=== PATIENT | male | born 1950 | race African-American/Black ===

== ENCOUNTER 2017-04-25 10:14 | Inpatient (IN) | payer MEDICARE, MEDICAID ==
[~2017-04-25] VITALS: Ht 175.3 cm; Wt 118.4 kg
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
[2017-04-25] MEDS ORDERED: RT-ALBUTEROL SULF 2.5 MG/3 ML PRE-MIX VIAL INH STA (10:24)
[2017-04-25] MEDS ORDERED: RT-ALBUTEROL/IPRATROPIUM 3 ML (DUONEB) VIAL INH ONE (10:30)
[2017-04-25 10:32] LABS: BASOPHILS % (AUTO) 0 % (0-10); EOSINOPHILS % (AUTO) 0 % (0-10); LYMPHOCYTES # (AUTO) 1.5 X 10^3 (1.0-4.0); LYMPHOCYTES % (AUTO) 27 % (12-44); MEAN CORPUSCULAR HEMOGLOBIN 34 PG (25-34); MEAN CORPUSCULAR HGB CONC 33 G/DL (32-36); MEAN CORPUSCULAR VOLUME 103 FL (80-99); MEAN PLATELET VOLUME 11.1 FL (7.4-10.4); MONOCYTES # (AUTO) 0.9 X 10^3 (0.0-1.0); MONOCYTES % (AUTO) 16 % (0-12); NEUTROPHILS # (AUTO) 3.2 X 10^3 (1.8-7.8); NEUTROPHILS % (AUTO) 57 % (42-75); PLATELET COUNT 182 10^3/uL (130-400); RED BLOOD COUNT 4.88 10^6/uL (4.35-5.85); RED CELL DISTRIBUTION WIDTH 15.2 % (10.0-14.5); WHITE BLOOD COUNT 5.6 10^3/uL (4.3-11.0)
--- NOTE | 2017-04-25 11:09 | ED Respiratory ---
General Chief Complaint: Respiratory Problems Stated Complaint: SOA Nursing Triage Note: ARRIVED VIA WC TO ROOM 05 FROM [facility]. COMPLAINS OF SOA X5 DAYS. PT ON OXYGEN 2LNC. Source: patient Exam Limitations: no limitations History of Present Illness Time seen by provider: 10:20 Timing/Duration: yesterday, getting worse Severity: moderate, severe Prior Episodes/Possible Cause: occasional episodes Modifying Factors: Improves With Albuterol Nebulizer Associated Symptoms: No chest pain/soreness, cough, No fever/chills, No nasal congestion, shortness of breath, wheezing Allergies and Home Medications Allergies Coded Allergies: Penicillins (Verified Allergy, Unknown, 04/25/17) Constitutional: see HPI, No chills, No fever EENTM: No nose congestion, No throat pain Respiratory: No cough, dyspnea on exertion, short of breath, wheezing Cardiovascular: No chest pain, edema, No palpitations Gastrointestinal: No abdominal pain, No nausea, No vomiting Genitourinary: no symptoms reported Musculoskeletal: no symptoms reported Skin: no symptoms reported Psychiatric/Neurological: No Symptoms Reported All Other Systems Reviewed Negative Unless Noted: Yes Past Ixdmwim-Ywfwna-Dxavqf Hx Patient Social History Alcohol Use: Denies Use Recreational Drug Use: No Smoking Status: Current Everyday Smoker Recent Foreign Travel: No Contact w/Someone Who Travel: No Recent Infectious Disease Expo: No Recent Hopitalizations: No Seasonal Allergies Seasonal Allergies: No Surgeries History of Surgeries: No Respiratory History of Respiratory Disorde: Yes Respiratory Disorders: Pneumonia, COPD Cardiovascular History of Cardiac Disorders: Yes (CHF, EDEMA) Cardiac Disorders: Hypertension Neurological History of Neurological Disord: Yes Neurological Disorders: Dementia, Stroke Genitourinary History of Genitourinary Disor: No Gastrointestinal History of Gastrointestinal Di: Yes Gastrointestinal Disorders: Chronic Constipation Musculoskeletal History of Musculoskeletal Dis: No Endocrine History of Endocrine Disorders: No Cancer History of Cancer: No Psychosocial History of Psychiatric Problem: Yes Behavioral Health Disorders: Depression Integumentary History of Skin or Integumenta: No Reviewed Nursing Assessment Reviewed/Agree w Nursing PMH: Yes Family Medical History Significant Family History: No Pertinent Family Hx Physical Exam Vital Signs Vital Sign - Last 12Hours 04/25/17 10:14 Temp 96.9 Pulse 72 Resp 18 B/P (MAP) 153/108 (123) Pulse Ox 98 O2 Delivery Nasal Cannula O2 Flow Rate 2.00 Capillary Refill : Less Than 3 Seconds General Appearance: WD/WN, no apparent distress HEENT: PERRL/EOMI, pharynx normal Neck: full range of motion, supple Respiratory: decreased breath sounds, crackles, wheezing, expiration Cardiovascular: regular rate, rhythm, no murmur Gastrointestinal: non tender, soft Extremities: non-tender, normal inspection Neurologic/Psychiatric: alert, oriented x 3 Skin: normal color, warm/dry Focused Exam Evaluation Lactate Level Laboratory Tests 04/25/17 10:23: Lactic Acid Level 1.43 Lactic Acid Level Laboratory Tests Test 04/25/17 10:23 Lactic Acid Level 1.43 MMOL/L (0.50-2.00) Progress/Results/Core Measures Suspected Sepsis Recent Fever Within 48 Hours: No Infection Criteria Present: Suspected New Infection New/Unexplained Altered Menta: No Sepsis Screen: No Definite Risk Sepsis Diagnosis: SIRS Temperature:96.9 Pulse: 72 Respiratory Rate: 18 Laboratory Tests 04/25/17 10:23: White Blood Count 5.6 Blood Pressure 153 /108 Mean: 123 Laboratory Tests 04/25/17 10:23: Lactic Acid Level 1.43 Laboratory Tests 04/25/17 10:23: Creatinine 1.42H, Platelet Count 182, Total Bilirubin 0.8 Results/Orders Lab Results Laboratory Tests Test 04/25/17 10:23 04/25/17 10:54 04/25/17 11:14 Range/Units White Blood Count 5.6 4.3-11.0 10^3/uL Red Blood Count 4.88 4.35-5.85 10^6/uL Hemoglobin 16.6 13.3-17.7 G/DL Hematocrit 50 40-54 % Mean Corpuscular Volume 103 H 80-99 FL Mean Corpuscular Hemoglobin 34 25-34 PG Mean Corpuscular Hemoglobin Concent 33 32-36 G/DL Red Cell Distribution Width 15.2 H 10.0-14.5 % Platelet Count 182 130-400 10^3/uL Mean Platelet Volume 11.1 H 7.4-10.4 FL Neutrophils (%) (Auto) 57 42-75 % Lymphocytes (%) (Auto) 27 12-44 % Monocytes (%) (Auto) 16 H 0-12 % Eosinophils (%) (Auto) 0 0-10 % Basophils (%) (Auto) 0 0-10 % Neutrophils # (Auto) 3.2 1.8-7.8 X 10^3 Lymphocytes # (Auto) 1.5 1.0-4.0 X 10^3 Monocytes # (Auto) 0.9 0.0-1.0 X 10^3 Eosinophils # (Auto) 0.0 0.0-0.3 10^3/uL Basophils # (Auto) 0.0 0.0-0.1 10^3/uL Sodium Level 143 135-145 MMOL/L Potassium Level 4.5 3.6-5.0 MMOL/L Chloride Level 99 98-107 MMOL/L Carbon Dioxide Level 31 21-32 MMOL/L Anion Gap 13 5-14 MMOL/L Blood Urea Nitrogen 40 H 7-18 MG/DL Creatinine 1.42 H 0.60-1.30 MG/DL Estimat Glomerular Filtration Rate 60 BUN/Creatinine Ratio 28 Glucose Level 120 H 70-105 MG/DL Lactic Acid Level 1.43 0.50-2.00 MMOL/L Calcium Level 8.4 L 8.5-10.1 MG/DL Magnesium Level 2.1 1.8-2.4 MG/DL Total Bilirubin 0.8 0.1-1.0 MG/DL Aspartate Amino Transf (AST/SGOT) 20 5-34 U/L Alanine Aminotransferase (ALT/SGPT) 18 0-55 U/L Alkaline Phosphatase 58 40-136 U/L Troponin I < 0.30 <0.30 NG/ML C-Reactive Protein High Sensitivity 1.07 H 0.00-0.50 MG/DL B-Type Natriuretic Peptide 2557.5 H <100.0 PG/ML Total Protein 7.5 6.4-8.2 GM/DL Albumin 3.6 3.2-4.5 GM/DL Digoxin Level 0.52 L 0.80-2.00 NG/ML Urine Color YELLOW Urine Clarity SLIGHTLY CLOUDY Urine pH 6 5-9 Urine Specific [place] 1.020 1.016-1.022 Urine Protein 3+ H NEGATIVE Urine Glucose (UA) NEGATIVE NEGATIVE Urine Ketones NEGATIVE NEGATIVE Urine Nitrite NEGATIVE NEGATIVE Urine Bilirubin NEGATIVE NEGATIVE Urine Urobilinogen NORMAL NORMAL MG/DL Urine Leukocyte Esterase 2+ H NEGATIVE Urine RBC (Auto) 1+ H NEGATIVE Urine RBC RARE /HPF Urine WBC 5-10 H /HPF Urine Squamous Epithelial Cells 2-5 /HPF Urine Crystals NONE /LPF Urine Bacteria TRACE /HPF Urine Casts NONE /LPF Urine Mucus NEGATIVE /LPF Urine Culture Indicated YES My Orders Orders - CAROL BLOCK MD BNP (04/25/17 10:24) Cbc With Automated Diff (04/25/17 10:24) Comprehensive Metabolic Panel (04/25/17 10:24) Hs C Reactive Protein (04/25/17 10:24) Lactic Acid Analyzer (04/25/17 10:24) Magnesium (04/25/17 10:24) Troponin I (04/25/17 10:24) Blood Culture (04/25/17 10:24) Sputum Culture (04/25/17 10:24) Chest 1 View, Ap/Pa Only (04/25/17 10:24) Saline Lock/Iv-Start (04/25/17 10:24) Ekg Tracing (04/25/17 10:24) O2 (04/25/17 10:24) Monitor-Rhythm Ecg Trace Only (04/25/17 10:24) Albuterol Pre-Mix Nebs (Rt) (Proventil (04/25/17 10:24) Albuterol/Ipra Inhalation Soln (Duoneb I (04/25/17 10:30) Svn Sm Volume Nebulizer Rt-Rfs (04/25/17 10:24) Svn Sm Volume Nebulizer Rt-Rfs (04/25/17 10:24) Ua Culture If Indicated (04/25/17 10:48) Furosemide Injection (Lasix Injection) (04/25/17 11:28) Digoxin (04/25/17 11:30) Urine Culture (04/25/17 11:14) Nitroglycerin Ointment (Nitrobid Ointme (04/25/17 12:15) Medications Given in ED Current Medications Medications Dose Ordered Sig/Cruzito Route Start Time Stop Time Status Last Admin Dose Admin Albuterol/ Ipratropium 3 ml ONCE ONCE INH 04/25/17 10:30 04/25/17 10:31 DC 04/25/17 10:31 3 ML Nitroglycerin 1 inch ONCE ONCE TOP 04/25/17 12:15 04/25/17 12:16 DC 04/25/17 12:16 1 INCH Vital Signs/I&O Vital Sign - Last 12Hours 04/25/17 04/25/17 04/25/17 10:14 10:14 10:35 Temp 96.9 Pulse 72 Resp 18 B/P (MAP) 153/108 (123) Pulse Ox 98 96 O2 Delivery Nasal Cannula Nasal Cannula O2 Flow Rate 2.00 2.00 Capillary Refill : Less Than 3 Seconds Blood Pressure Mean: 123 Progress Note : Progress Note Seen and evaluated. IV, labs, EKG, chest x-ray, DuoNeb and albuterol therapy ordered. Monitor patient. 1140: Findings are consistent with acute heart failure. Lasix 40 mg IV ordered. Patient will require admission. 1157: I did discuss the case with Dr. Norwood. She accepts patient for admission, observation status. 1200: I did discuss the case with Dr. Chase and he accepts patient in consult. 1220: Nitroglycerin paste 1 inch to anterior chest wall for blood pressure 160s systolic and heart failure. Admit, inpatient status. Patient agrees with plan. ECG Initial ECG Impression Date: Apr 25, 2017 Initial ECG Impression Time: 11:04 Initial ECG Rate: 78 Initial ECG Rhythm: Normal Sinus Comment Sinus rhythm with PVC. First degree A-V block with left bundle branch block. Left axis deviation. No evidence of ST elevation [place]. No previous available for comparison. Interpreted by me. Diagnostic Imaging Diagonstic Imaging: Xray Plain Films/CT/US/NM/MRI: chest Comments NAME: ANIBAL MARS [facility] REC#: [id number] PT STATUS: REG ER : 1950 PHYSICIAN: CAROL BLOCK MD ADMIT DATE: 04/25/17/ER Draft Date of Exam:04/25/17 CHEST 1 VIEW, AP/PA ONLY EXAMINATION: Portable upright radiograph of the chest. INDICATION: Shortness of breath. FINDINGS: The lungs demonstrate patchy right basilar and left perihilar infiltrates. There is severe cardiomegaly. Pulmonary vascular congestion is also suggested. No effusion or pneumothorax. The mediastinum and norman appear unremarkable. Pacemaker with 2 cardiac leads seen. IMPRESSION: Marked cardiomegaly with vascular congestion. Patchy right basilar and left perihilar opacities may relate to superimposed pneumonia or pulmonary edema. Dictated on workstation # [id number] Dict: 04/25/17 1110 Trans: 04/25/17 1114 CHARLES [id number] Interpreted by: KALIE DONALDSON MD Electronically signed by: Departure Communication (Admissions) Time/Spoke to Admitting Phy: 11:57 Time/Spoke to Consulting Phy: 12:00 Impression Impression: Primary Impression: Acute heart failure Qualified Codes: I50.21 - Acute systolic (congestive) heart failure Additional Impression: Respiratory distress Disposition: ADMITTED INPATIENT Condition: Stable Admissions Decision to Admit Reason: Admit from ER (General) Decision to Admit/Date: Apr 25, 2017 Time/Decision to Admit Time: 11:57 Departure-Patient Inst. Referrals: JOSE L ROCA MD (PCP/Family) Primary Care Physician CAROL BLOCK MD Apr 25, 2017 11:09
--- NOTE | 2017-04-25 11:14 | Diagnostic Imaging Report ---
EXAMINATION: Portable upright radiograph of the chest. INDICATION: Shortness of breath. FINDINGS: The lungs demonstrate patchy right basilar and left perihilar infiltrates. There is severe cardiomegaly. Pulmonary vascular congestion is also suggested. No effusion or pneumothorax. The mediastinum and norman appear unremarkable. Pacemaker with 2 cardiac leads seen. IMPRESSION: Marked cardiomegaly with vascular congestion. Patchy right basilar and left perihilar opacities may relate to superimposed pneumonia or pulmonary edema. Dictated by: Dictated on workstation # [id number]
[2017-04-25 11:17] LABS: ALANINE AMINOTRANSFERASE 18 U/L (0-55); ALBUMIN 3.6 GM/DL (3.2-4.5); ANION GAP 13 MMOL/L (5-14); ASPARTATE AMINO TRANSFERASE 20 U/L (5-34); BILIRUBIN,TOTAL 0.8 MG/DL (0.1-1.0); BLOOD UREA NITROGEN 40 MG/DL (7-18); BUN/CREATININE RATIO 28; CALCIUM 8.4 MG/DL (8.5-10.1); CARBON DIOXIDE 31 MMOL/L (21-32); CHLORIDE 99 MMOL/L (98-107); CREATININE SERUM 1.42 MG/DL (0.60-1.30); GFR ESTIMATED 60; GLUCOSE 120 MG/DL (70-105); MAGNESIUM 2.1 MG/DL (1.8-2.4); POTASSIUM 4.5 MMOL/L (3.6-5.0); SODIUM 143 MMOL/L (135-145); TOTAL PROTEIN 7.5 GM/DL (6.4-8.2); hs C REACTIVE PROTEIN 1.07 MG/DL (0.00-0.50)
[2017-04-25 11:20] LABS: BILIRUBIN,URINE NEGATIVE (NEGATIVE); KETONES,URINE NEGATIVE (NEGATIVE); LEUKOCYTE ESTERASE ,URINE 2+ (NEGATIVE); NITRITE,URINE NEGATIVE (NEGATIVE); PH,URINE 6 (5-9); PROTEIN,URINE 3+ (NEGATIVE); UROBILINOGEN,URINE NORMAL (NORMAL)
[2017-04-25 11:23] LABS: TROPONIN I < 0.30 NG/ML (<0.30)
[2017-04-25] MEDS ORDERED: FUROSEMIDE 40 MG/4 ML INJ (LASIX) IV STA (11:28)
[2017-04-25] MEDS ORDERED: NITROGLYCERIN 2% OINT 1 GM UNIT DOSE PACKET TOP ONE (12:15)
--- NOTE | 2017-04-25 13:44 | Consultation-Cardiology ---
HPI-Cardiology Cardiology Consultation Date of Consultation 04/25/17 Date of Admission Time Seen by Provider: 13:38 Indication: congestive heart failure HPI 66 years old gentleman with no known past history, reported that he was living in [place] and he has seen a mercury cracking tester for history of heart attack and congestive heart failure. Patient is confused. Not sure about his place or time, while I was trying to obtain further history about the reason for him coming to the hospital patient became combative and agitated. Was angry and did not want any further exam to be performed. He appeared to be in congestive heart failure with elevated BNP area denied any chest pain at that time. I am unable to obtain any further history Home Medications & Allergies Allergies: Coded Allergies: Penicillins (Verified Allergy, Unknown, 04/25/17) Home Medication List Reviewed: Yes [id number] Hx Patient Social History Alcohol Use: Denies Use Recreational Drug Use: No Smoking Status: Current Everyday Smoker Recent Foreign Travel: No Recent Infectious Disease Expo: No Recent Hopitalizations: No Past Medical History unable to provide past medical history Family Medical History Significant Family History: No Pertinent Family Hx Family Medical Hx unable to provide family history Family History: Cardiovascular disease 19 FATHER 19 MOTHER Congenital heart disease Diabetes mellitus 19 MOTHER Hypercholesterolemia 19 FATHER 19 MOTHER Hypertension 19 FATHER 19 MOTHER Constitutional: other (confused and agitated, unable to provide review of systems) Reviewed Test Results Reviewed Test Results Lab Laboratory Tests Test 04/25/17 10:23 04/25/17 10:54 04/25/17 11:14 Range/Units White Blood Count 5.6 4.3-11.0 10^3/uL Red Blood Count 4.88 4.35-5.85 10^6/uL Hemoglobin 16.6 13.3-17.7 G/DL Hematocrit 50 40-54 % Mean Corpuscular Volume 103 H 80-99 FL Mean Corpuscular Hemoglobin 34 25-34 PG Mean Corpuscular Hemoglobin Concent 33 32-36 G/DL Red Cell Distribution Width 15.2 H 10.0-14.5 % Platelet Count 182 130-400 10^3/uL Mean Platelet Volume 11.1 H 7.4-10.4 FL Neutrophils (%) (Auto) 57 42-75 % Lymphocytes (%) (Auto) 27 12-44 % Monocytes (%) (Auto) 16 H 0-12 % Eosinophils (%) (Auto) 0 0-10 % Basophils (%) (Auto) 0 0-10 % Neutrophils # (Auto) 3.2 1.8-7.8 X 10^3 Lymphocytes # (Auto) 1.5 1.0-4.0 X 10^3 Monocytes # (Auto) 0.9 0.0-1.0 X 10^3 Eosinophils # (Auto) 0.0 0.0-0.3 10^3/uL Basophils # (Auto) 0.0 0.0-0.1 10^3/uL Sodium Level 143 135-145 MMOL/L Potassium Level 4.5 3.6-5.0 MMOL/L Chloride Level 99 98-107 MMOL/L Carbon Dioxide Level 31 21-32 MMOL/L Anion Gap 13 5-14 MMOL/L Blood Urea Nitrogen 40 H 7-18 MG/DL Creatinine 1.42 H 0.60-1.30 MG/DL Estimat Glomerular Filtration Rate 60 BUN/Creatinine Ratio 28 Glucose Level 120 H 70-105 MG/DL Lactic Acid Level 1.43 0.50-2.00 MMOL/L Calcium Level 8.4 L 8.5-10.1 MG/DL Magnesium Level 2.1 1.8-2.4 MG/DL Total Bilirubin 0.8 0.1-1.0 MG/DL Aspartate Amino Transf (AST/SGOT) 20 5-34 U/L Alanine Aminotransferase (ALT/SGPT) 18 0-55 U/L Alkaline Phosphatase 58 40-136 U/L Troponin I < 0.30 <0.30 NG/ML C-Reactive Protein High Sensitivity 1.07 H 0.00-0.50 MG/DL B-Type Natriuretic Peptide 2557.5 H <100.0 PG/ML Total Protein 7.5 6.4-8.2 GM/DL Albumin 3.6 3.2-4.5 GM/DL Digoxin Level 0.52 L 0.80-2.00 NG/ML Urine Color YELLOW Urine Clarity SLIGHTLY CLOUDY Urine pH 6 5-9 Urine Specific [place] 1.020 1.016-1.022 Urine Protein 3+ H NEGATIVE Urine Glucose (UA) NEGATIVE NEGATIVE Urine Ketones NEGATIVE NEGATIVE Urine Nitrite NEGATIVE NEGATIVE Urine Bilirubin NEGATIVE NEGATIVE Urine Urobilinogen NORMAL NORMAL MG/DL Urine Leukocyte Esterase 2+ H NEGATIVE Urine RBC (Auto) 1+ H NEGATIVE Urine RBC RARE /HPF Urine WBC 5-10 H /HPF Urine Squamous Epithelial Cells 2-5 /HPF Urine Crystals NONE /LPF Urine Bacteria TRACE /HPF Urine Casts NONE /LPF Urine Mucus NEGATIVE /LPF Urine Culture Indicated YES Physical Exam Vital Signs Vital Sign - Last 12Hours 04/25/17 10:14 Temp 96.9 Pulse 72 Resp 18 B/P (MAP) 153/108 (123) Pulse Ox 98 O2 Delivery Nasal Cannula O2 Flow Rate 2.00 Capillary Refill : Less Than 3 Seconds General Appearance: Chronically ill, Mild Distress HEENT: Other (unable to evaluate) Neck: Full Range of Motion, Non Tender Respiratory: Chest Non Tender, Crackles, Decreased Breath Sounds Cardiovascular: Systolic Murmur, Gallop/S3, Other (mild edema) Gastrointestinal: Other (unable to do abdominal exam) Rectal: Deferred (due to his current condition) Genital/Rectal: Other (unable to perform rectal exam) Back: Other (not following commands) A/P-Cardiology Admission Diagnosis Congestive heart failure Coronary artery disease Hypertension Hyperlipidemia Assessment/Plan Congestive heart failure, unknown etiology, it could be ischemic in nature, elevated BMP, will start on diuretics, evaluate 2-D echocardiogram. Questionable pulmonary infiltrate, continue to monitor chest x-ray Coronary artery disease, questionable history of heart attack in the past, I do not have any access to his old records. Monitor for now. Hypertension restart home medications and monitor blood pressure Hyperlipidemia, evaluate lipid profile. Confusion and agitation, questionable secondary to hypoxemia, probably under lying history of vascular dementia or stroke. JOHN RILEY MD Apr 25, 2017 13:43
[2017-04-25] MEDS ORDERED: CATHETER FLUSH 10 ML SYR IV PRN (13:45)
[2017-04-25 13:50] VITALS: BP 139/98
[2017-04-25] MEDS: ASPIRIN 325 MG (5 GR) TABLET PO SCH (14:37)
[2017-04-25] MEDS: CATHETER FLUSH 10 ML SYR IV SCH ×2 (14:37→20:43)
[2017-04-25] MEDS ORDERED: CARV3.122 PO (15:10)
[2017-04-25] MEDS ORDERED: GUAI100L13 PO (15:10)
[2017-04-25] MEDS ORDERED: FURO40TA4 PO (15:10)
[2017-04-25] MEDS ORDERED: IPRA3AMP IH (15:10)
[2017-04-25] MEDS ORDERED: FAMO20TA3 PO (15:10)
[2017-04-25] MEDS ORDERED: FOLI1TAB24 PO (15:10)
[2017-04-25] MEDS ORDERED: LATA2.5D5 OU (15:10)
[2017-04-25] MEDS ORDERED: DIVA500T15 PO (15:10)
[2017-04-25] MEDS ORDERED: POTA20TA15 PO (15:10)
[2017-04-25] MEDS ORDERED: NAPR-1071 PO (15:10)
[2017-04-25] MEDS ORDERED: ASCO-262 PO (15:10)
[2017-04-25] MEDS ORDERED: DIGO125T PO (15:10)
[2017-04-25] MEDS ORDERED: METO5TAB6 PO (15:10)
[2017-04-25] MEDS ORDERED: TRAZ-28 PO (15:10)
[2017-04-25] MEDS ORDERED: DONE5TAB30 PO (15:10)
[2017-04-25] MEDS ORDERED: CHOL200025 PO (15:10)
[2017-04-25] MEDS ORDERED: ACET-2267 PO (15:10)
[2017-04-25] MEDS ORDERED: MAGN400T29 PO (15:10)
[2017-04-25] MEDS ORDERED: LEVE500T6 PO (15:10)
[2017-04-25] MEDS ORDERED: METH4TAB11 PO (15:10)
[2017-04-25] MEDS ORDERED: ASPI-983 PO (15:10)
[2017-04-25] MEDS ORDERED: ISOS30TA8 PO (15:26)
[2017-04-25 15:30] VITALS: BP 143/102
[2017-04-25] MEDS: RT-ALBUTEROL/IPRATROPIUM 3 ML (DUONEB) VIAL INH SCH ×2 (15:54→22:09)
[2017-04-25] MEDS: FUROSEMIDE 40 MG/4 ML INJ (LASIX) IV SCH (17:37)
[2017-04-25 19:58] VITALS: BP 143/99
[2017-04-25] MEDS: FAMOTIDINE 20 MG (PEPCID) TABLET PO SCH (20:43)
[2017-04-25] MEDS: CARVEDILOL 3.125 MG (COREG) TABLET PO SCH (20:43)
[2017-04-26] VITALS: BP 136/90
[2017-04-26] MEDS: RT-ALBUTEROL/IPRATROPIUM 3 ML (DUONEB) VIAL INH SCH ×5 (02:21→18:32)
[2017-04-26 04:00] VITALS: BP 123/78
[2017-04-26] MEDS: FUROSEMIDE 40 MG/4 ML INJ (LASIX) IV SCH (05:54)
[2017-04-26] MEDS: CATHETER FLUSH 10 ML SYR IV SCH ×3 (05:55→21:13)
[2017-04-26 06:12] LABS: BASOPHILS % (AUTO) 0 % (0-10); EOSINOPHILS % (AUTO) 1 % (0-10); LYMPHOCYTES # (AUTO) 1.2 X 10^3 (1.0-4.0); LYMPHOCYTES % (AUTO) 26 % (12-44); MEAN CORPUSCULAR HEMOGLOBIN 34 PG (25-34); MEAN CORPUSCULAR HGB CONC 33 G/DL (32-36); MEAN CORPUSCULAR VOLUME 103 FL (80-99); MEAN PLATELET VOLUME 10.8 FL (7.4-10.4); MONOCYTES % (AUTO) 21 % (0-12); NEUTROPHILS # (AUTO) 2.5 X 10^3 (1.8-7.8); NEUTROPHILS % (AUTO) 53 % (42-75); PLATELET COUNT 152 10^3/uL (130-400); RED BLOOD COUNT 4.44 10^6/uL (4.35-5.85); RED CELL DISTRIBUTION WIDTH 15.2 % (10.0-14.5); WHITE BLOOD COUNT 4.7 10^3/uL (4.3-11.0)
[2017-04-26 06:33] LABS: BAND NEUTROPHILS 2 %; EOSINOPHILS % (MANUAL) 0 %; LYMPHOCYTES % (MANUAL) 24 %; NEUTROPHILS % (MANUAL) 60 %
[2017-04-26 06:34] LABS: ANISOCYTOSIS SLIGHT; BASOPHILS % (MANUAL) 0 %
[2017-04-26 06:37] LABS: ALBUMIN 3.3 GM/DL (3.2-4.5); BILIRUBIN,TOTAL 0.5 MG/DL (0.1-1.0); CALCIUM 8.4 MG/DL (8.5-10.1); CREATININE SERUM 1.46 MG/DL (0.60-1.30); POTASSIUM 4.1 MMOL/L (3.6-5.0); TOTAL PROTEIN 6.5 GM/DL (6.4-8.2)
[2017-04-26 08:22] VITALS: BP 126/87
[2017-04-26] MEDS ORDERED: ISOSORBIDE DINITRATE 30 MG PO SCH (09:00)
[2017-04-26] MEDS: METOLAZONE 5 MG (ZAROXOLYN) TAB PO SCH (09:06)
[2017-04-26] MEDS: LEVETIRACETAM 500 MG (KEPPRA) TAB PO SCH ×2 (09:06→21:10)
[2017-04-26] MEDS: ASPIRIN 325 MG (5 GR) TABLET PO SCH (09:06)
[2017-04-26] MEDS: ISOSORBIDE DINITRATE 10 MG (ISORDIL) TABLET PO SCH (09:07)
[2017-04-26] MEDS: DIGOXIN 0.125 MG (LANOXIN) TAB PO SCH (09:07)
[2017-04-26] MEDS: FAMOTIDINE 20 MG (PEPCID) TABLET PO SCH ×2 (09:07→21:10)
[2017-04-26] MEDS: CARVEDILOL 3.125 MG (COREG) TABLET PO SCH ×2 (09:07→21:10)
[2017-04-26] MEDS: FOLIC ACID 1 MG TAB PO SCH (09:07)
--- NOTE | 2017-04-26 09:34 | History & Physicial (CHS) ---
BRO VILLARREAL STUDENT 04/26/17 0934: HPI History of Present Illness: Patient presented to the ED last night from [facility] for SOB. At the ED, he denied chest pain. According to ED note, had SOB for 5 days. Today, patient was confused and could not recall where he was or why he was in the hospital; he kept saying that he must be here to "get well". He could not recall day, time, or location. He did inform me that he is from [place]. He denied chest pain, shortness of breath, headache, n/v/d, difficulties urinating , pain with urination, fever, joint pains. Difficult to obtain history due to confusion this morning. Source: patient Exam Limitations: clinical condition Date seen by provider: Apr 26, 2017 Time Seen by Provider: 08:00 Attending Physician Myrna Bradley MD PCP Gregg Tan MD Consult Date of Admission Apr 25, 2017 at 12:30 Home Medications Home Medications Reviewed patient Home Medication Reconciliation Form Allergies Coded Allergies: Penicillins (Verified Allergy, Unknown, 04/25/17) [facility] Hx Patient Social History Alcohol Use: Denies Use Recreational Drug Use: No Smoking Status: Current Everyday Smoker Recent Foreign Travel: No Contact w/other who traveled: No Recent Hopitalizations: No Recent Infectious Disease Expo: No Physical Abuse Screen: No Sexual Abuse: No Immunizations Up To Date Date of Pneumonia Vaccine: Apr 17, 2016 Date of Influenza Vaccine: Mar 13, 2017 Family Medical History Significant Family History: No Pertinent Family Hx Family History: Cardiovascular disease 19 FATHER 19 MOTHER Congenital heart disease Diabetes mellitus 19 MOTHER Hypercholesterolemia 19 FATHER 19 MOTHER Hypertension 19 FATHER 19 MOTHER Review of Systems (CHC) Constitutional: No chills, No dizziness, No fever Respiratory: No cough, No short of breath Cardiovascular: No chest pain, No palpitations Gastrointestinal: No abdominal pain, No constipation, No diarrhea, No nausea, No vomiting Genitourinary: No dysuria, No frequency, No hesitancy Musculoskeletal: No joint pain Reviewed Test Results Reviewed Test Results Lab Laboratory Tests Test 04/25/17 10:23 04/25/17 10:54 04/25/17 11:14 04/26/17 05:49 Range/Units White Blood Count 5.6 4.7 4.3-11.0 10^3/uL Red Blood Count 4.88 4.44 4.35-5.85 10^6/uL Hemoglobin 16.6 14.9 13.3-17.7 G/DL Hematocrit 50 46 40-54 % Mean Corpuscular Volume 103 H 103 H 80-99 FL Mean Corpuscular Hemoglobin 34 34 25-34 PG Mean Corpuscular Hemoglobin Concent 33 33 32-36 G/DL Red Cell Distribution Width 15.2 H 15.2 H 10.0-14.5 % Platelet Count 182 152 130-400 10^3/uL Mean Platelet Volume 11.1 H 10.8 H 7.4-10.4 FL Neutrophils (%) (Auto) 57 53 42-75 % Lymphocytes (%) (Auto) 27 26 12-44 % Monocytes (%) (Auto) 16 H 21 H 0-12 % Eosinophils (%) (Auto) 0 1 0-10 % Basophils (%) (Auto) 0 0 0-10 % Neutrophils # (Auto) 3.2 2.5 1.8-7.8 X 10^3 Lymphocytes # (Auto) 1.5 1.2 1.0-4.0 X 10^3 Monocytes # (Auto) 0.9 1.0 0.0-1.0 X 10^3 Eosinophils # (Auto) 0.0 0.0 0.0-0.3 10^3/uL Basophils # (Auto) 0.0 0.0 0.0-0.1 10^3/uL Sodium Level 143 144 135-145 MMOL/L Potassium Level 4.5 4.1 3.6-5.0 MMOL/L Chloride Level 99 100 98-107 MMOL/L Carbon Dioxide Level 31 34 H 21-32 MMOL/L Anion Gap 13 10 5-14 MMOL/L Blood Urea Nitrogen 40 H 43 H 7-18 MG/DL Creatinine 1.42 H 1.46 H 0.60-1.30 MG/DL Estimat Glomerular Filtration Rate 60 59 BUN/Creatinine Ratio 28 29 Glucose Level 120 H 79 70-105 MG/DL Lactic Acid Level 1.43 0.50-2.00 MMOL/L Calcium Level 8.4 L 8.4 L 8.5-10.1 MG/DL Magnesium Level 2.1 1.8-2.4 MG/DL Total Bilirubin 0.8 0.5 0.1-1.0 MG/DL Aspartate Amino Transf (AST/SGOT) 20 14 5-34 U/L Alanine Aminotransferase (ALT/SGPT) 18 16 0-55 U/L Alkaline Phosphatase 58 57 40-136 U/L Troponin I < 0.30 <0.30 NG/ML C-Reactive Protein High Sensitivity 1.07 H 0.00-0.50 MG/DL B-Type Natriuretic Peptide 2557.5 H 2286.6 H <100.0 PG/ML Total Protein 7.5 6.5 6.4-8.2 GM/DL Albumin 3.6 3.3 3.2-4.5 GM/DL Digoxin Level 0.52 L 0.80-2.00 NG/ML Urine Color YELLOW Urine Clarity SLIGHTLY CLOUDY Urine pH 6 5-9 Urine Specific [place] 1.020 1.016-1.022 Urine Protein 3+ H NEGATIVE Urine Glucose (UA) NEGATIVE NEGATIVE Urine Ketones NEGATIVE NEGATIVE Urine Nitrite NEGATIVE NEGATIVE Urine Bilirubin NEGATIVE NEGATIVE Urine Urobilinogen NORMAL NORMAL MG/DL Urine Leukocyte Esterase 2+ H NEGATIVE Urine RBC (Auto) 1+ H NEGATIVE Urine RBC RARE /HPF Urine WBC 5-10 H /HPF Urine Squamous Epithelial Cells 2-5 /HPF Urine Crystals NONE /LPF Urine Bacteria TRACE /HPF Urine Casts NONE /LPF Urine Mucus NEGATIVE /LPF Urine Culture Indicated YES Neutrophils % (Manual) 60 % Lymphocytes % (Manual) 24 % Monocytes % (Manual) 14 % Eosinophils % (Manual) 0 % Basophils % (Manual) 0 % Band Neutrophils 2 % Anisocytosis SLIGHT Vital Signs 04/25/17 04/26/17 15:31 08:22 Temp 96.9 Pulse 73 Resp 20 B/P (MAP) 126/87 (100) Pulse Ox 91 O2 Delivery Nasal Cannula O2 Flow Rate 2.00 FiO2 28 Radiology Chest x-ray on 04/25/17: interpreted by Dr. Freeman De Guzman IMPRESSION: Marked cardiomegaly with vascular congestion. Patchy right basilar and left perihilar opacities may relate to superimposed pneumonia or pulmonary edema. Physical Exam-(CHC) Physical Exam Vital Signs VS - Last 72 Hours, by Label 04/25/17 04/25/17 04/25/17 04/25/17 10:14 10:14 10:35 13:10 Temp 96.9 Pulse 72 77 Resp 18 18 B/P (MAP) 153/108 (123) Pulse Ox 98 96 98 O2 Delivery Nasal Cannula Nasal Cannula O2 Flow Rate 2.00 2.00 04/25/17 04/25/17 04/25/17 04/25/17 13:25 13:50 15:30 15:31 Temp 66.8 98.2 Pulse 73 74 77 Resp 16 18 B/P (MAP) 139/98 (112) 143/102 (116) Pulse Ox 98 97 98 O2 Delivery Nasal Cannula Nasal Cannula Nasal Cannula O2 Flow Rate 2.00 2.00 1.50 2.00 FiO2 28 04/25/17 04/25/17 04/25/17 04/25/17 15:42 19:00 19:58 21:00 Temp 98.7 Pulse 64 69 Resp 18 B/P (MAP) 143/99 (114) Pulse Ox 98 O2 Delivery Nasal Cannula Nasal Cannula Nasal Cannula O2 Flow Rate 2.00 1.50 2.00 04/25/17 04/26/17 04/26/17 04/26/17 22:09 00:00 01:27 02:22 Temp 97.3 Pulse 70 80 Resp 14 B/P (MAP) 136/90 (105) Pulse Ox 96 93 95 O2 Delivery Nasal Cannula Nasal Cannula Nasal Cannula O2 Flow Rate 2.00 1.50 2.00 04/26/17 04/26/17 04/26/17 04/26/17 04:00 06:49 07:28 08:22 Temp 97.0 96.9 Pulse 60 81 73 Resp 12 20 B/P (MAP) 123/78 (93) 126/87 (100) Pulse Ox 93 95 91 O2 Delivery Nasal Cannula Nasal Cannula Nasal Cannula O2 Flow Rate 2.00 2.00 2.00 Capillary Refill : Less Than 3 Seconds General Appearance: WD/WN, no apparent distress Respiratory: chest non-tender, no respiratory distress, no accessory muscle use , decreased breath sounds, crackles Cardiovascular: regular rate, rhythm, systolic murmur Gastrointestinal: normal bowel sounds, non tender, soft Neurologic/Psychiatric: No alert, disoriented x 3 Skin: normal color, warm/dry Clinical Quality Measures DVT/VTE Risk/Contraindication: Risk Factor Score Per Nursin RFS Level Per Nursing on Admit: 4+=Very High Copy Copies To 1: [facility] Leandra Balbuena Assessment/Plan Assessment/Plan Admission Dx 1. Acute congestive heart failure 2. Suspected pneumonia or pulmonary edema per chest x-ray 3. Hypertension 4. Confusion Plan 1. Acute congestive heart failure: elevated BMP, consulted Dr. Chase for echocardiogram. 2. Suspected pneumonia or pulmonary edema per chest x-ray: continue to monitor WBC count and chest x-ray for changes. Begin abx if consolidation develops. 3. Hypertension: resume home medications, monitor pressure 4. Confusion: monitor vital signs and for infection MYRNA BRADLEY MD 04/26/17 1034: HPI History of Present Illness: In addition to above Patient recently treated in [place] for COPD exacerbation with a steroid taper that did not improve his shortness of breath. States that he walks with walker at baseline. Home Medications Allergies Coded Allergies: Penicillins (Verified Allergy, Unknown, 04/25/17) IOP-Eqvije-Gjiayi Hx Patient Social History Living Status: [place], [facility] Past Medical History HTN HLD CHF CAD Family Medical History Family History: Cardiovascular disease 19 FATHER 19 MOTHER Congenital heart disease Diabetes mellitus 19 MOTHER Hypercholesterolemia 19 FATHER 19 MOTHER Hypertension 19 FATHER 19 MOTHER Review of Systems (CHC) EENTM: no symptoms reported Respiratory: dyspnea on exertion, short of breath Skin: No lesions, No rash Psychiatric/Neurological: Denies Anxiety, Denies Depressed, Denies Numbness, Weakness Physical Exam-([facility]) Physical Exam Vital Signs VS - Last 72 Hours, by Label 04/25/17 04/25/17 04/25/17 04/25/17 10:14 10:14 10:35 13:10 Temp 96.9 Pulse 72 77 Resp 18 18 B/P (MAP) 153/108 (123) Pulse Ox 98 96 98 O2 Delivery Nasal Cannula Nasal Cannula O2 Flow Rate 2.00 2.00 04/25/17 04/25/17 04/25/17 04/25/17 13:25 13:50 15:30 15:31 Temp 66.8 98.2 Pulse 73 74 77 Resp 16 18 B/P (MAP) 139/98 (112) 143/102 (116) Pulse Ox 98 97 98 O2 Delivery Nasal Cannula Nasal Cannula Nasal Cannula O2 Flow Rate 2.00 2.00 1.50 2.00 FiO2 28 04/25/17 04/25/17 04/25/17 04/25/17 15:42 19:00 19:58 21:00 Temp 98.7 Pulse 64 69 Resp 18 B/P (MAP) 143/99 (114) Pulse Ox 98 O2 Delivery Nasal Cannula Nasal Cannula Nasal Cannula O2 Flow Rate 2.00 1.50 2.00 04/25/17 04/26/17 04/26/17 04/26/17 22:09 00:00 01:27 02:22 Temp 97.3 Pulse 70 80 Resp 14 B/P (MAP) 136/90 (105) Pulse Ox 96 93 95 O2 Delivery Nasal Cannula Nasal Cannula Nasal Cannula O2 Flow Rate 2.00 1.50 2.00 04/26/17 04/26/17 04/26/17 04/26/17 04:00 06:49 07:28 08:13 Temp 97.0 Pulse 60 81 Resp 12 B/P (MAP) 123/78 (93) Pulse Ox 93 95 O2 Delivery Nasal Cannula Nasal Cannula Nasal Cannula O2 Flow Rate 2.00 2.00 2.00 04/26/17 04/26/17 08:22 10:27 Temp 96.9 Pulse 73 Resp 20 B/P (MAP) 126/87 (100) Pulse Ox 91 93 O2 Delivery Nasal Cannula Nasal Cannula O2 Flow Rate 2.00 2.00 General Appearance: WD/WN, no apparent distress HEENT: PERRL/EOMI Neck: non-tender, full range of motion, supple, normal inspection Respiratory: chest non-tender, no respiratory distress, no accessory muscle use , decreased breath sounds, No accessory muscle use, crackles Cardiovascular: regular rate, rhythm, systolic murmur, No irregularly irregular Gastrointestinal: normal bowel sounds, non tender, soft, No guarding, No rebound, No tenderness Extremities: no calf tenderness, normal capillary refill, pedal edema (1+) Neurologic/Psychiatric: part maker II-XII nml as tested, no motor/sensory deficits, normal mood/affect, disoriented x 3 Skin: normal color, warm/dry Lymphatic: no adenopathy Copy Copies To 1: GIDEON Balbuena Assessment/Plan Assessment/Plan Plan 66 yo M admitted for worsening shortness of breath found to be in Acute CHF Plan Acute systolic CHF with Pulmonary Edema - Cardiology consulted, awaiting records - Echo with EF 15-20% - Will need ACEI/ARB, on Coreg - Lasix 40 mg IV BID Elevated Cr: Unsure of baseline - Will continue to monitor closely during diuresis HTN: Controlled - continue home meds HLD CAD: - Continue daily ASA FEN: Heart healthy diet DVT PPX: Lovenox Dispo: Continue admission for Systolic CHF BRO VILLARREAL STUDENT Apr 26, 2017 09:34 MYRNA BRADLEY MD Apr 26, 2017 10:34
[2017-04-26 12:00] VITALS: BP 126/89
--- NOTE | 2017-04-26 13:48 | Physical Therapy Evaluation ---
PT Evaluation-General Medical Diagnosis Admission Date Apr 25, 2017 at 12:30 Medical Diagnosis: Acute Heart Failure Onset Date: Apr 26, 2017 Therapy Diagnosis Therapy Diagnosis: weakness Height/Weight Height (Feet): 5 Height (Inches): 9.00 Weight (Pounds): 261 Weight (Ounces): 0.0 Precautions Precautions/Isolations: Fall Prevention, Standard Precautions, Pressure Ulcer Weight Bear Status Right Lower Extremity: Right Weight Bearing/Tolerated Left Lower Extremity: Left Weight Bearing/Tolerated Referral Physician: Elisha Norwood Reason for Referral: Evaluation/Treatment, Strengthening, Gait Medical History Pertinent Medical History: COPD, Dementia, HTN, Smoking Additional Medical History pneumonia, COPD, Stroke, chr. constipation, depression Reviewed History: Yes Social History Home: [facility] Prior/Core FIM Prior Level of Function Functional Carlos Measure 0=Not Assessed/NA 4=Minimal Assistance 1=Total Assistance 5=Supervision or Setup 2=Maximal Assistance 6=Modified Carlos 3=Moderate Assistance 7=Complete Carlos Bed Mobility: 7 Transfers (B,C,W/C) (FIM): 7 Gait: 6 Locomotion: 6 PT Evaluation-Current Subjective Patient is seated in his chair upon Pt entering the room. Patient appears pleasant. Patient seems confused with some statements and responses, but he seems to have a general understanding of his situation. Pain Numeric Pain Scale: 0-No Pain Location: No Pain Reported Pt/Family Goals Patient wishes to return to better health and get back with his family. Objective Patient Orientation: Person, Confused, Place, Situation Attachments: Oxygen 2.0 L of O2 ROM/Strength ROM Upper Extremities WNL ROM Lower Extremities WNL Strength Upper Extremities WNL Strength Lower Extremities WNL Integumentary/Posture Integumentary intact Bowel Incontinence: No Bladder Incontinence: No Neuromuscular (Tone, Coordination, Reflexes) normal Sensory Vision: Functional Hearing: Functional Sensation Right Upper Extremit: Intact Sensation Left Upper Extremity: Intact Sensation Right Lower Extremit: Intact Sensation Left Lower Extremity: Intact Transfers Functional Carlos Measure 0=Not Assessed/NA 4=Minimal Assistance 1=Total Assistance 5=Supervision or Setup 2=Maximal Assistance 6=Modified Carlos 3=Moderate Assistance 7=Complete Carlos Transfers (B, C, W/C) (FIM): 5 Sit to/from Stand: 5 Paitent transferred to/from sit to stand safely. Gait Mode of Locomotion: Walk Anticipated Mode of Locomotion: Walk Gait (FIM): 2 Distance: 60' Gait Level of Assist: 5 Gait Persons Needed: 1 Gait Assistive Device: FWW Comments/Gait Description Patient walks with slow reciprocal gait with short stride. Patient's hips and knees are flexed during gait as he is slouched over the FWW. Balance Sitting Static: Normal Sitting Dynamic: Normal Standing Static: Normal Standing Dynamic: Fair Assessment/Needs Patient cognition seems to be somewhat impaired, but he understands commands and is very agreeable to therapeutic intervention. Patient stated that walking made his muscles sore nd pointed to his chest cavity. PT will look to improve functional activity tolerance and improve cardiopulmonary function through exercise and gait training. 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 PT [facility] Goals Time Frame: May 03, 2017 Transfers (B,C,W/C) (FIM): 5 Gait (FIM): 5 Distance: 200' Gait Level of Assist: 5 Gait Assistive Device: FWW PT Plan Problem List Problem List: Activity Tolerance, Functional Strength, Safety, Balance, Gait, Transfer Treatment/Plan Treatment Plan: Continue Plan of Care Treatment Plan: Bed Mobility, Education, Functional Activity Osmel, Functional Strength, Gait, Safety, Therapeutic Exercise Treatment Duration: May 03, 2017 Frequency: 6 times per week Estimated Hrs Per Day: .25 hour per day Patient and/or Family Agrees t: Yes Safety Risks/Education Patient Education: Gait Training, Correct Positioning, Safety Issues Teaching Recipient: Patient Teaching Methods: Demonstration, Discussion Response to Teaching: Verbalize Understanding, Return Demonstration, Reinforcement Needed Discharge Recommendations Therapy D/C Recommendations: Assisted Living, Home w/ Family Support, [facility] Placement Equpiment Recommendations-D/C: Front Wheeled Walker, Manual Wheelchair Time/GCodes Time In: 1310 Time Out: 1328 Total Billed Treatment Time: 18 Total Billed Treatment 1 visit EVM 18 min LEDA FAUSTIN PT Apr 26, 2017 13:48
--- NOTE | 2017-04-26 14:26 | Cardiology Progress Note ---
Subjective Date Seen by Provider: Apr 26, 2017 Time Seen by Provider: 07:30 Subjective/Events-last exam Patient was seen and this morning, he was laying down in bed, reporting that he is feeling better, breathing better, no chest pain was reported, edema is somewhat better Review of Systems General: No Chills, No Night Sweats, No Fatigue, No Malaise, No Appetite, No Other HEENT: No Head Aches, No Visual Changes, No Eye Pain, No Ear Pain, No Dysphasia , No Sinus Congestion, No Post Nasal Drip, No Sore Throat, No Other Pulmonary: Dyspnea, No Cough, No Pleuritic Chest Pain, No Other Cardiovascular: Chest Pain, Edema, No: Palpitations, Orthopnea, Paroxysmal Noc. Dyspnea, Lt Headedness, Other Objective-Cardiology Exam Last Set of Vital Signs Vital Signs 04/25/17 04/26/17 04/26/17 15:31 12:00 13:00 Temp 97.7 Pulse 64 Resp 22 B/P (MAP) 126/89 (101) Pulse Ox 99 O2 Delivery Nasal Cannula O2 Flow Rate 2.00 FiO2 28 Capillary Refill : Less Than 3 Seconds I&O Intake and Output 04/26/17 00:00 Intake Total 360 ml Output Total 825 ml Balance -465 ml Intake Oral 360 ml Output Urine Total 825 ml Daily Weight Change No General: Alert, Cooperative, Mild Distress HEENT: Atraumatic, PERRLA Neck: Supple, No JVD, No Thyromegaly Lungs: Normal Air Movement, Other (bilateral rhonchi) Heart: Regular Rate, Normal S1, Normal S2, Other (S3 is present) Abdomen: Normal Bowel Sounds, Soft, No Tenderness, No Hepatosplenomegaly, No Masses Extremities: No Clubbing, No Cyanosis, Normal Pulses, No Tenderness/Swelling, Other (lower extremity edema) Skin: No Rashes, No Breakdown, No Significant Lesion Neuro: Normal Speech, Normal Tone Psych/Mental Status: Other (confused) Results Lab Laboratory Tests 04/26/17 05:49 A/P-Cardiology Admission Diagnosis Congestive heart failure Coronary artery disease Hypertension Hyperlipidemia Assessment/Plan Congestive heart failure, unknown etiology, it could be ischemic in nature, echo showed ejection fraction 15 percent. Continue with aggressive diuretics. Permanent pacemaker/ICD, implanted in [address] Fitz Yousif in [place] , [employer] device. I will try to obtain copy of the results Questionable pulmonary infiltrate, continue to monitor chest x-ray, followed and monitored by primary care physician Coronary artery disease, questionable history of heart attack in the past, I do not have any access to his old records. Monitor for now. Hypertension restart home medications and monitor blood pressure Hyperlipidemia, evaluate lipid profile. Renal insufficiency, probably chronic. Continue to monitor renal function closely Dementia, confusion, I do not know his baseline mental status Clinical Quality Measures DVT/VTE Risk/Contraindication: Risk Factor Score Per Nursin RFS Level Per Nursing on Admit: 4+=Very High JOHN RILEY MD Apr 26, 2017 14:26
[2017-04-26 15:20] VITALS: BP 146/90
[2017-04-26] MEDS: FUROSEMIDE 40 MG/4 ML INJ (LASIX) IVP SCH (16:58)
[2017-04-26 19:01] VITALS: BP 144/72
[2017-04-26] MEDS ORDERED: DIVALPROEX EXT RELEASE 500 MG (DEPAKOTE ER) TAB PO SCH (21:00)
[2017-04-26] MEDS ORDERED: LATANOPROST 0.005% (XALATAN) OPHTH SOLN 2.5 ML OU SCH (21:00)
[2017-04-27] VITALS: BP 120/84
[2017-04-27] MEDS: RT-ALBUTEROL/IPRATROPIUM 3 ML (DUONEB) VIAL INH SCH ×5 (00:01→14:56)
[2017-04-27 04:00] VITALS: BP 133/81
[2017-04-27 06:21] LABS: BASOPHILS % (AUTO) 0 % (0-10); EOSINOPHILS # (AUTO) 0.1 10^3/uL (0.0-0.3); EOSINOPHILS % (AUTO) 1 % (0-10); LYMPHOCYTES # (AUTO) 1.3 X 10^3 (1.0-4.0); LYMPHOCYTES % (AUTO) 22 % (12-44); MEAN CORPUSCULAR HEMOGLOBIN 34 PG (25-34); MEAN CORPUSCULAR HGB CONC 33 G/DL (32-36); MEAN CORPUSCULAR VOLUME 104 FL (80-99); MEAN PLATELET VOLUME 10.6 FL (7.4-10.4); MONOCYTES # (AUTO) 1.4 X 10^3 (0.0-1.0); MONOCYTES % (AUTO) 22 % (0-12); NEUTROPHILS # (AUTO) 3.4 X 10^3 (1.8-7.8); NEUTROPHILS % (AUTO) 55 % (42-75); PLATELET COUNT 151 10^3/uL (130-400); RED BLOOD COUNT 4.35 10^6/uL (4.35-5.85); RED CELL DISTRIBUTION WIDTH 14.9 % (10.0-14.5); WHITE BLOOD COUNT 6.1 10^3/uL (4.3-11.0)
[2017-04-27] MEDS: CATHETER FLUSH 10 ML SYR IV SCH (06:37)
[2017-04-27] MEDS: FUROSEMIDE 40 MG/4 ML INJ (LASIX) IVP SCH (06:37)
[2017-04-27 06:40] LABS: ALANINE AMINOTRANSFERASE 14 U/L (0-55); ALBUMIN 3.3 GM/DL (3.2-4.5); ANION GAP 13 MMOL/L (5-14); ASPARTATE AMINO TRANSFERASE 14 U/L (5-34); BILIRUBIN,TOTAL 0.7 MG/DL (0.1-1.0); BLOOD UREA NITROGEN 39 MG/DL (7-18); BUN/CREATININE RATIO 30; CALCIUM 8.3 MG/DL (8.5-10.1); CARBON DIOXIDE 34 MMOL/L (21-32); CHLORIDE 99 MMOL/L (98-107); GFR ESTIMATED > 60; GLUCOSE 82 MG/DL (70-105); POTASSIUM 3.7 MMOL/L (3.6-5.0); SODIUM 146 MMOL/L (135-145); TOTAL PROTEIN 6.3 GM/DL (6.4-8.2)
[2017-04-27 07:04] LABS: THYROID STIMULATING HORMONE 1.55 UIU/ML (0.35-4.94)
[2017-04-27 08:53] VITALS: BP 141/91
--- NOTE | 2017-04-27 08:59 | Cardiology Progress Note ---
Subjective Date Seen by Provider: Apr 27, 2017 Time Seen by Provider: 08:53 Subjective/Events-last exam Patient is in a chair, feeling better, no new complaint, ICD interrogated, multiple episode of nonsustained ventricular tachycardia Review of Systems General: No Chills, No Night Sweats, No Fatigue, No Malaise, No Appetite, No Other HEENT: No Head Aches, No Visual Changes, No Eye Pain, No Ear Pain, No Dysphasia , No Sinus Congestion, No Post Nasal Drip, No Sore Throat, No Other Pulmonary: Dyspnea, No Cough, No Pleuritic Chest Pain, No Other Cardiovascular: Edema, No: Chest Pain, Palpitations, Orthopnea, Paroxysmal Noc. Dyspnea, Lt Headedness, Other Objective-Cardiology Exam Last Set of Vital Signs Vital Signs 04/25/17 04/27/17 15:31 04:00 Temp 97.5 Pulse 75 Resp 18 B/P (MAP) 133/81 (98) Pulse Ox 94 O2 Delivery Nasal Cannula O2 Flow Rate 2.00 FiO2 28 Capillary Refill : Less Than 3 Seconds I&O Intake and Output 04/27/17 00:00 Intake Total 2040 ml Output Total 2040 ml Balance 0 ml Intake Oral 2040 ml Output Urine Total 2040 ml # Voids 6 General: Alert, Cooperative, Mild Distress HEENT: Atraumatic, PERRLA Neck: Supple, No JVD, No Thyromegaly Lungs: Normal Air Movement, Other (bilateral rhonchi) Heart: Regular Rate, Normal S1, Normal S2, Other (S3 is present) Abdomen: Normal Bowel Sounds, Soft, No Tenderness, No Hepatosplenomegaly, No Masses Extremities: No Clubbing, No Cyanosis, Normal Pulses, No Tenderness/Swelling, Other (lower extremity edema) Skin: No Rashes, No Breakdown, No Significant Lesion Neuro: Normal Speech, Normal Tone Psych/Mental Status: Other (confused) Results Lab Laboratory Tests 04/27/17 05:49 A/P-Cardiology Admission Diagnosis Congestive heart failure Coronary artery disease Hypertension Hyperlipidemia Assessment/Plan Congestive heart failure, acute on chronic left ventricular systolic dysfunction , ejection fraction 15 percent, probably ischemic in nature. Conservative management at this point. Maintained on Coreg, I will add Entresto and evaluate his tolerance and response. Permanent pacemaker/ICD, implanted in [address] Fitz Yousif in [place] , [employer] device, interrogation showed good sensing and capture activity. Slight increase in the atrial lead threshold, multiple episodes of nonsustained ventricular tachycardia. Continue to monitor Questionable pulmonary infiltrate, continue to monitor chest x-ray, followed and monitored by primary care physician Helen I will repeat chest x-ray Coronary artery disease, questionable history of heart attack in the past, I do not have any access to his old records. Monitor for now. Hypertension, continue to monitor blood pressure, I started him on Entresto Hyperlipidemia, continue to monitor lipids Renal insufficiency, acute on chronic renal insufficiency, improved at this time , continue to monitor Dementia, confusion, I do not know his baseline mental status From cardiac standpoint patient has improved, okay for discharge if his chest x- ray has improved. I will repeat chest x-ray today. Will need to continue maximizing medical therapy as an outpatient. I will evaluate him in my office next week Clinical Quality Measures DVT/VTE Risk/Contraindication: Risk Factor Score Per Nursin RFS Level Per Nursing on Admit: 4+=Very High JOHN RILEY MD Apr 27, 2017 08:59
[2017-04-27] MEDS ORDERED: SACUBITRIL/VALSARTAN 24/26 MG (ENTRESTO) TABLET PO SCH (09:00)
[2017-04-27] MEDS: DIGOXIN 0.125 MG (LANOXIN) TAB PO SCH (09:52)
[2017-04-27] MEDS: LEVETIRACETAM 500 MG (KEPPRA) TAB PO SCH (09:52)
[2017-04-27] MEDS: FOLIC ACID 1 MG TAB PO SCH (09:52)
[2017-04-27] MEDS: ISOSORBIDE DINITRATE 10 MG (ISORDIL) TABLET PO SCH (09:52)
[2017-04-27] MEDS: ASPIRIN 325 MG (5 GR) TABLET PO SCH (09:52)
[2017-04-27] MEDS: METOLAZONE 5 MG (ZAROXOLYN) TAB PO SCH (09:52)
[2017-04-27] MEDS: FAMOTIDINE 20 MG (PEPCID) TABLET PO SCH (09:52)
[2017-04-27] MEDS: CARVEDILOL 3.125 MG (COREG) TABLET PO SCH (09:52)
--- NOTE | 2017-04-27 10:10 | Diagnostic Imaging Report ---
PA and lateral views of the chest. INDICATION: Dyspnea. COMPARISON: 04/25/2017. FINDINGS: There is marked cardiomegaly seen again. Patchy infiltrate in the right perihilar and right lung base is seen. There is improvement in background vascular congestion. No significant effusion. No pneumothorax. Pacemaker with two cardiac leads seen. IMPRESSION: 1. Right perihilar and basilar infiltrates, slightly increased from the previous exam. 2. Cardiomegaly with improved vascular congestion. Dictated by: Dictated on workstation # [id number]
--- NOTE | 2017-04-27 11:05 | Discharge Summary ---
Diagnosis/Chief Complaint Date of Admission Apr 25, 2017 at 12:30 Date of Discharge 04/27/17 Admission Diagnosis Admission Diagnosis Acute Systolic CHF, EF 15-20% Acute Renal Failure HTN HLD CAD Dementia Discharge Diagnosis See Above Chief Complaint/HPI Chief Complaint/HPI In addition to above Patient recently treated in [place] for COPD exacerbation with a steroid taper that did not improve his shortness of breath. States that he walks with walker at baseline. Discharge Summary-Simple/Stand Consultations Dr Chase: Cardiology Discharge Physical Examination Allergies: Coded Allergies: Penicillins (Verified Allergy, Unknown, 04/25/17) Vitals & I&Os Vital Sign - Last 12Hours Date Time Temp Pulse Resp B/P (MAP) Pulse Ox O2 Delivery O2 Flow Rate FiO2 04/27/17 10:50 94 Nasal Cannula 2.00 04/27/17 08:53 97.7 80 20 141/91 (108) 04/25/17 15:31 28 Intake and Output 04/27/17 00:00 Intake Total 2040 ml Output Total 1715 ml Balance 325 ml General Appearance: Alert, Cooperative, No Acute Distress HEENT: EOMI, Mucous Memb Moist/[place] Respiratory: Clear to Auscultation, Normal Air Movement Cardiovascular: Regular Rate, No Murmurs Abdominal: Normal Bowel Sounds, Soft, No Tenderness, No Hepatosplenomegaly, No Masses Extremities: No Tenderness/Swelling, Other (Trace edema equal bilaterally) Skin: No Rashes Neuro: Normal Speech, Strength at 5/5 X4 Ext, Sensation Intact, Cranial Nerves 3-12 NL Hospital Course See final discharge diagnosis. Radiology Reviewed Discussion & Recommendations 66 yo [place] patient that presented with increasing shortness of breath found to be in CHF Acute Systolic CHF, EF 15-20%: Cardiology was consulted on patient as he has not seen a unmanned aircraft systems roboticist since coming to [place]. Patient had Echo that showed EF 15-20%. Patient has ICD/pacemaker in place. Started on lasix BID for diuresis and shortness of breath much improved. Patient was then started on Entresto by Cardiology. Ordered daily weights and low salt diet for discharge. Will focus on maximizing CHF management. Acute Renal Failure: Resolved at time of discharge HTN: Well controlled, continue home medications HLD CAD Dementia: Discharged at patients baseline. Discharge back to [place] with new orders for CHF management Discharge Condition at discharge stable Instructions to patient/family Please see electronic discharge instructions given to patient. Discharge Medications Reviewed and agree with Discharge Medication list on patient's Discharge Instruction sheet Clinical Quality Measures DVT/VTE Risk/Contraindication: Risk Factor Score Per Nursin RFS Level Per Nursing on Admit: 4+=Very High Copy Copies To 1: Leandra MENESES HOLLY R MD Apr 27, 2017 11:05
[2017-04-27] MEDS ORDERED: SACU1TAB PO (11:07)
--- NOTE | 2017-04-27 11:19 | Discharge Inst-Skilled Nursing ---
Discharge Inst-Skilled NF Patient Instructions Patient Problems: Acute and Chronic Systolic CHF Acute Renal Failure HTN CAD Altered Mental Status Goal: Improved CHF symptoms Consult/Follow Up/Orders Follow up appt.: Leandra Balbuena will see you in the [place] [facility] Admit to: Certifications SNF I certify that SNF services are required to be given on an inpatient basis because of the above named patient's need for fpc care on a continuing basis for the conditions(s) for which he/she was receiving inpatient hospital services prior to his/her transfer to the SNF. Custodial Facility Order: Nursing Services, Carton Filler-Evaluate & Treat, Physical Therapy-Evaluate & Treat Discharge Diet: Low Sodium Diet, Cardiac Diet Daily Activity as Tolerated: Yes New & Resume Previous Orders New & Resume Previous Orders - Daily Weights, call with >5 pound weight gain - Low sodium diet Discharge Medications New, Converted or Re-Newed RX: Transmitted to Pharmacy New Medications: Sacubitril/Valsartan (Entresto 24 mg-26 mg Tablet) 1 Each Tablet 1 EACH PO BID, #60 TAB Continued Medications: Acetaminophen (Tylenol Extra Strength) 500 Mg Tablet 500 MG PO Q6H PRN for TEMP/MILD PAIN, TAB Ascorbate Calcium (Vitamin C) 500 Mg Tablet 500 MG PO DAILY, TAB Aspirin (Aspirin EC) 81 Mg Tablet.dr 81 MG PO DAILY, TAB Carvedilol (Carvedilol) 3.125 Mg Tablet 3.125 MG PO BID, TAB HOLD FOR SBP BELOW 100 AND CALL MD FOR SBP ABOVE 160 Cholecalciferol (Vitamin D3) (Vitamin D3) 2,000 Unit Tablet 2000 UNIT PO DAILY, TAB Digoxin (Digoxin) 125 Mcg Tablet 125 MCG PO DAILY, TAB HOLD FOR PULSE LESS THAN 60 Divalproex Sodium (Divalproex Sodium ER) 500 Mg Tab.er.24h 1000 MG PO HS, TAB TAKES 2 (500MG) TABLETS Donepezil HCl (Donepezil HCl) 5 Mg Tablet 5 MG PO HS, TAB Famotidine (Acid Sewer Pipe Sorter (FAMOTIDINE)) 20 Mg Tablet 20 MG PO BID, TAB Folic Acid (Folic Acid) 1 Mg Tablet 1 MG PO DAILY, TAB Furosemide (Furosemide) 40 Mg Tablet 40 MG PO 0900,1700, TAB Ipratropium/Albuterol Sulfate (Iprat-Albut 0.5-3(2.5) mg/3 ml) 3 Ml Ampul.neb 3 ML IH QID, EACH Isosorbide Dinitrate (Isosorbide Dinitrate) 30 Mg Tablet 30 MG PO DAILY, TAB Latanoprost (Latanoprost) 2.5 Ml Drops 1 DROP OU HS, DROPS Levetiracetam (Levetiracetam) 500 Mg Tablet 500 MG PO BID, TAB Magnesium Oxide (Magox 400) 400 Mg Tablet 400 MG PO DAILY, TAB Metolazone (Metolazone) 5 Mg Tablet 5 MG PO DAILY, TAB Potassium Chloride (Potassium Chloride) 20 Meq Tab.er.prt 20 MEQ PO DAILY Discontinued Medications: Naproxen (Naprosyn) 500 Mg Tablet 500 MG PO BID WITH MEALS, TAB Trazodone HCl (Trazodone HCl) 50 Mg Tablet 50 MG PO HS, TAB Myrna Norwood Apr 27, 2017 11:09 MYRNA NORWOOD MD Apr 27, 2017 11:18
[2017-04-27 12:00] VITALS: BP 138/88
[2017-04-27 15:50] VITALS: BP 118/78
== END 2017-04-27 17:45 | DRG 292 ==
LOC: ER 10:18 → 4TH 12:30
PROVIDERS: ADMIT Family Medicine; ATTEND Family Medicine
DX: I11.0 Hypertensive heart disease with heart failure (principal); I50.23 Acute on chronic systolic (congestive) heart failure; N18.9 Chronic kidney disease, unspecified; J44.9 Chronic obstructive pulmonary disease, unspecified; N17.9 Acute kidney failure, unspecified; I47.2 Ventricular tachycardia; I25.10 Atherosclerotic heart disease of native coronary artery without angina pectoris; Z66 Do not resuscitate; E78.5 Hyperlipidemia, unspecified; F17.200 Nicotine dependence, unspecified, uncomplicated; I25.2 Old myocardial infarction; F03.90 Unspecified dementia, unspecified severity, without behavioral disturbance, psychotic disturbance, mood disturbance, and anxiety; F32.9 Major depressive disorder, single episode, unspecified; K59.09 Other constipation; Z86.73 Personal history of transient ischemic attack (TIA), and cerebral infarction without residual deficits; Z87.01 Personal history of pneumonia (recurrent); Z95.810 Presence of automatic (implantable) cardiac defibrillator
CPT/HCPCS: 36415; 71010; 71020; 80053; 80162; 81000; 83036; 83605; 83735; 83880; 84443; 84484; 85007; 85025; 85027; 86141; 87040; 87088; 93005; 93041; 93306; 94640; 94760; 96374